=== PATIENT | female | born 1975 | race Caucasian/White ===

== ENCOUNTER 2020-03-17 07:28 | Day surgery (SDC) | payer BC ==
[~2020-03-17 07:28] MED LIST: Midazolam 1 MG/ML 2 ML SDV ONE; Propofol 200 MG/20 ML SDV ONE; fentaNYL 100 MCG/2 ML SDV ONE
[2020-03-17] MEDS ORDERED: Dextrose 5%-Lactated Ringers 1,000 ML IV SCH (08:00)
[2020-03-17] MEDS ORDERED: Naloxone 0.4 MG/ML SDV IVPUSH PRN (10:07)
[2020-03-17] MEDS ORDERED: diphenhydrAMINE 25 MG Cap PO PRN (10:07)
[2020-03-17] MEDS ORDERED: HYDROmorphone/Normal Saline 15 MG/30 ML PCA IV PRN (10:07)
[2020-03-17] MEDS ORDERED: diphenhydrAMINE 50 MG/ML SDV IVPUSH PRN (10:07)
[2020-03-17] MEDS ORDERED: Ondansetron 4 MG/2 ML SDV IVPUSH PRN (10:07)
--- NOTE | 2020-03-28 11:32 | OR ---
DATE OF PROCEDURE: 03/17/2020 SURGEON: Martin Page MD PREOPERATIVE DIAGNOSIS: Gastroesophageal reflux disease. POSTOPERATIVE DIAGNOSES: 1. Mild gastroesophageal reflux disease with a small hiatal hernia, but otherwise wide open esophagogastric junction. 2. Mild antral gastritis. OPERATIVE PROCEDURE: Esophagogastroduodenoscopy with: 1. Biopsies of esophagogastric junction for histologic evaluation. 2. Biopsies of antrum for CLOtest. ANESTHESIA: IV sedation. INDICATION FOR PROCEDURE: A 44-year-old presenting with some worsening gastroesophageal reflux symptoms. Presently, the patient is on Pepcid 20 mg b.i.d. Plan is to proceed with an upper GI endoscopy with biopsies as indicated. Potential risks including bleeding and perforation were discussed, and the patient wishes to proceed. DETAILS OF PROCEDURE: The patient was taken to the operating room and placed in a left lateral decubitus position. IV sedation was administered, after which the upper GI endoscope was passed orally through the length of the esophagus into the stomach with retroflexion view of the fundus, and thereafter, through the pyloric channel into the proximal duodenum. Findings included a very small hiatal hernia with some very mild-appearing gastroesophageal reflux disease with the mucosa distally within the esophagus being somewhat friable and edematous. There was a quite wide open esophagogastric junction indicating limited barrier function between the stomach and the esophagus being present. Otherwise, with patchy antral gastritis. The pyloric channel and proximal duodenum were unremarkable. At this point, biopsies were obtained from the esophagogastric junction and sent for histologic evaluation. Biopsies of antrum for CLOtest. Minimal bleeding from the biopsy sites was seen, and the procedure was then concluded. Given the patient's underlying complex medical issues, I think we will, at this point, avoid starting on proton pump inhibitors. She to have some intolerances to these in the past. We will go up to 40 mg b.i.d. with the Pepcid, and followup will be with Rosalina Velarde PA-C, at [facility], as needed. Martin Page MD /[id number]
== END 2020-03-17 11:15 | disposition home or self-care (01) ==
LOC: JP.SDS 07:28
PROVIDERS: ATTEND Surgery
DX: K31.89 Other diseases of stomach and duodenum (principal); K29.50 Unspecified chronic gastritis without bleeding; K21.9 Gastro-esophageal reflux disease without esophagitis; K44.9 Diaphragmatic hernia without obstruction or gangrene; N18.30 Chronic kidney disease, stage 3 unspecified; Z88.0 Allergy status to penicillin; Z88.2 Allergy status to sulfonamides
CPT/HCPCS: 43239; 87081; 88305; 88312; J2250; J2704; J3010; J7121

== ENCOUNTER 2022-04-12 06:59 | Inpatient (IN) | payer BC ==
[~2022-04-12 06:59] MED LIST changes: +Bupivacaine 0.5% 30 ML SDV ONE; +Lidocaine 1% with EPINEPHrine 1:100,000 50 ML MDV ONE; +Meropenem 500 MG SDV ONE; -Midazolam 1 MG/ML 2 ML SDV ONE; -Propofol 200 MG/20 ML SDV ONE; -fentaNYL 100 MCG/2 ML SDV ONE
[2022-04-12] MEDS ORDERED: fentaNYL 250 MCG/5 ML SDV ONE ×2 (07:02→10:21)
[2022-04-12] MEDS ORDERED: Dexamethasone 4 MG/ML SDV ONE (07:03)
[2022-04-12] MEDS ORDERED: Neostigmine Methylsulfate 1 MG/ML 5 ML Syringe ONE (07:03)
[2022-04-12] MEDS ORDERED: Succinylcholine 200 MG/10 ML MDV ONE (07:03)
[2022-04-12] MEDS ORDERED: Rocuronium 50 MG/5 ML Vial ONE (07:03)
[2022-04-12] MEDS ORDERED: Glycopyrrolate 0.2 MG/ML 5 ML MDV ONE (07:03)
[2022-04-12] MEDS ORDERED: Propofol 200 MG/20 ML SDV ONE (07:03)
[2022-04-12] MEDS ORDERED: Ondansetron 4 MG/2 ML SDV ONE (07:03)
[2022-04-12] MEDS ORDERED: Dextrose 5%-Lactated Ringers 1,000 ML IV SCH (07:15)
[2022-04-12] MEDS ORDERED: Acetaminophen 500 MG Tab PO ONE (07:30)
[2022-04-12 07:38] LABS: ESTIMATED GFR 57 mL/min (>60)
[2022-04-12] MEDS ORDERED: cefOXitin 2 GM in Sodium Chloride 0.9% 50 ML IV ONE (08:15)
[2022-04-12] MEDS ORDERED: Ropivacaine 35 ML, dexAMETHasone 8 MG, EPINEPHrine 0.4 MG, Sodium Chloride 0.9% 42.6 ML NERVRT SCH ×4 (08:30)
[2022-04-12] MEDS ORDERED: Lactated Ringers 1,000 ML ONE (10:41)
[2022-04-12] MEDS ORDERED: Labetalol 20 MG/4 ML Syringe ONE (10:42)
[2022-04-12] MEDS ORDERED: Naloxone 0.4 MG/ML SDV IVPUSH PRN (11:38)
[2022-04-12] MEDS ORDERED: Ondansetron 4 MG/2 ML SDV IVPUSH PRN (11:38)
[2022-04-12] MEDS ORDERED: diphenhydrAMINE 50 MG/ML SDV IVPUSH PRN (11:38)
[2022-04-12] MEDS ORDERED: diphenhydrAMINE 25 MG Cap PO PRN (11:38)
[2022-04-12] MEDS ORDERED: HYDROmorphone/Normal Saline 6 MG/30 ML PCA Vial IV PRN (11:38)
[2022-04-12] MEDS ORDERED: hydrOXYzine HCL 100 MG/2 ML SDV IM ONE (12:25)
[2022-04-12] MEDS ORDERED: hydrALAZINE 20 MG/ML SDV ONE (12:45)
[2022-04-12] MEDS ORDERED: hydrOXYzine HCL 100 MG/2 ML SDV IM PRN (13:18)
[2022-04-12] MEDS ORDERED: Fluticasone NASAL Spray 16 GM Bottle NASBOTH PRN (13:26)
[2022-04-12] MEDS ORDERED: Naloxone 0.4 MG/ML SDV IV PRN (14:00)
[2022-04-12] MEDS: cefOXitin 2 GM in Sodium Chloride 0.9% 50 ML IV SCH ×2 (14:37→19:18)
[2022-04-12] MEDS ORDERED: cefOXitin 2 GM in Sodium Chloride 0.9% 50 ML IV SCH (16:00)
[2022-04-12] MEDS: Ondansetron 4 MG/2 ML SDV IVPUSH PRN (17:12)
[2022-04-12] MEDS: Acetaminophen 325 MG Tab PO SCH ×2 (18:36→22:13)
[2022-04-12] MEDS: Ketorolac 30 MG/ML SDV IVPUSH PRN (19:17)
[2022-04-12] MEDS: Dextrose 5%-Lactated Ringers 1,000 ML IV SCH (20:31)
[2022-04-12] MEDS: Mycophenolate Mofetil 250 MG Cap PO SCH (21:17)
[2022-04-12] MEDS: Famotidine 20 MG Tab PO SCH (21:17)
[2022-04-12] MEDS: Cetirizine 10 MG Tab PO SCH (21:17)
[2022-04-13] MEDS: Acetaminophen 325 MG Tab PO SCH ×5 (00:07→23:53)
[2022-04-13] MEDS: cefOXitin 2 GM in Sodium Chloride 0.9% 50 ML IV SCH ×4 (02:19→20:06)
[2022-04-13] MEDS: Dextrose 5%-Lactated Ringers 1,000 ML IV SCH (03:42)
[2022-04-13 05:06] LABS: ESTIMATED GFR 57 mL/min (>60)
[2022-04-13] MEDS: Ondansetron 4 MG/2 ML SDV IVPUSH PRN (05:34)
[2022-04-13] MEDS ORDERED: Ondansetron 4 MG Tab.DIS PO PRN (07:24)
[2022-04-13] MEDS ORDERED: traMADol 50 MG Tab PO PRN (07:25)
[2022-04-13] MEDS ORDERED: hydrOXYzine HCl 25 MG Tab PO PRN (07:26)
[2022-04-13] MEDS ORDERED: Dextrose 5%-Lactated Ringers 1,000 ML IV SCH (07:30)
[2022-04-13] MEDS: Ketorolac 30 MG/ML SDV IVPUSH PRN (08:30)
[2022-04-13] MEDS: Bisacodyl 5 MG Tab PO SCH ×2 (08:30→20:07)
[2022-04-13] MEDS: Mycophenolate Mofetil 250 MG Cap PO SCH ×2 (08:30→20:07)
[2022-04-13] MEDS: Docusate Sodium 100 MG Cap PO SCH ×2 (08:30→20:07)
[2022-04-13] MEDS: Famotidine 20 MG Tab PO SCH ×2 (08:31→20:07)
[2022-04-13] MEDS: buPROPion 150 MG Tab.ER PO SCH (08:31)
[2022-04-13] MEDS ORDERED: Mycophenolate Mofetil 250 MG Cap PO SCH (09:00)
[2022-04-13] MEDS: Cetirizine 10 MG Tab PO SCH (20:07)
[2022-04-14] MEDS: Acetaminophen 325 MG Tab PO SCH ×3 (05:23→17:45)
[2022-04-14] MEDS: Bisacodyl 5 MG Tab PO SCH ×2 (08:04→20:21)
[2022-04-14] MEDS: Docusate Sodium 100 MG Cap PO SCH ×2 (08:04→20:21)
[2022-04-14] MEDS: Famotidine 20 MG Tab PO SCH ×2 (08:04→20:21)
[2022-04-14] MEDS: Mycophenolate Mofetil 250 MG Cap PO SCH ×2 (08:04→20:21)
[2022-04-14] MEDS: buPROPion 150 MG Tab.ER PO SCH (08:05)
[2022-04-14] MEDS: Magnesium Oxide 400 MG Tab PO SCH ×2 (09:33→20:21)
[2022-04-14] MEDS: Polyethylene Glycol 3350 Powder 17 GM Packet PO PRN (11:28)
[2022-04-14] MEDS: Cetirizine 10 MG Tab PO SCH (20:22)
[2022-04-15] MEDS: Acetaminophen 325 MG Tab PO SCH ×2 (02:04→08:17)
[2022-04-15 05:06] LABS: ESTIMATED GFR 71 mL/min (>60)
[2022-04-15] MEDS: Polyethylene Glycol 3350 Powder 17 GM Packet PO PRN (07:20)
[2022-04-15] MEDS: Mycophenolate Mofetil 250 MG Cap PO SCH (08:16)
[2022-04-15] MEDS: Docusate Sodium 100 MG Cap PO SCH (08:17)
[2022-04-15] MEDS: Bisacodyl 5 MG Tab PO SCH (08:17)
[2022-04-15] MEDS: Magnesium Oxide 400 MG Tab PO SCH (08:17)
[2022-04-15] MEDS: buPROPion 150 MG Tab.ER PO SCH (08:18)
[2022-04-15] MEDS: Famotidine 20 MG Tab PO SCH (08:18)
== END 2022-04-15 09:54 | disposition home or self-care (01) | DRG 519 ==
LOC: JP.SDSSCHI 06:59 → JP.MS 11:45
PROVIDERS: ADMIT Surgery; ATTEND Surgery
PROC: 0UT90ZZ Resection of Uterus, Open Approach (ICD-10-PCS; principal; 2022-04-12)
PROC: 0DBW0ZZ Excision of Peritoneum, Open Approach (ICD-10-PCS; 2022-04-12)
PROC: 3E0M05Z Introduction of Adhesion Barrier into Peritoneal Cavity, Open Approach (ICD-10-PCS; 2022-04-12)
DX: D25.1 Intramural leiomyoma of uterus (principal); K66.8 Other specified disorders of peritoneum; Z88.0 Allergy status to penicillin; Z88.2 Allergy status to sulfonamides; F32.A Depression, unspecified; G43.909 Migraine, unspecified, not intractable, without status migrainosus; M32.14 Glomerular disease in systemic lupus erythematosus; Z98.890 Other specified postprocedural states
CPT/HCPCS: 36415; 80048; 80053; 83735; 84100; 85025; 85027; 86850; 86900; 86901; 86920; 86922; A9270-GY; J0171; J0330; J0360; J0694; J1100; J1170; J1885; J2020; J2185; J2405; J2704; J2710; J2795; J3010; J3410; J3490; J7120; J7121

== ENCOUNTER 2023-10-11 01:23 | Emergency (ER) | payer BC ==
[2023-10-11 02:09] LABS: BASOPHILS PERCENT AUTO 0.5 % (0.1-1.3); EOSINOPHILS PERCENT AUTO 0.5 % (0.0-5.4); HEMATOCRIT 36.4 % (34.3-46.0); HEMOGLOBIN 12.6 g/dL (11.2-15.5); IMMATURE GRAN PERCENT AUTO 0.5 % (0.0-0.7); LYMPHOCYTES ABSOLUTE AUTO 0.96 K/uL (0.8-3.3); LYMPHOCYTES PERCENT AUTO 22.4 % (11.4-47.7); MEAN CORPUSCULAR HEMOGLOBIN 30.1 pg (31.6-35.5); MEAN CORPUSCULAR HGB CONC 34.6 g/dL (31.6-35.5); MEAN CORPUSCULAR VOLUME 87.1 fL (81.4-99.0); MONOCYTES ABSOLUTE AUTO 0.59 K/uL (0.20-0.90); MONOCYTES PERCENT AUTO 13.8 % (3.3-12.6); NEUTROPHILS ABSOLUTE AUTO 2.68 K/uL (1.0-7.6); NEUTROPHILS PERCENT AUTO 62.3 % (40.0-78.1); PLATELET COUNT,PLT 194 K/uL (130-375); RED BLOOD CELL COUNT 4.18 M/uL (3.77-5.24); WHITE BLOOD CELL COUNT,WBC 4.3 K/uL (3.2-11.0)
[2023-10-11] MEDS: Sodium Chloride 0.9% 1,000 ML IV SCH (02:10)
[2023-10-11] MEDS: Sodium Chloride 0.9% 10 ML Syringe FLUSH PRN (02:11)
[2023-10-11] MEDS: Prochlorperazine 10 MG/2 ML SDV IVPUSH ONE (02:11)
[2023-10-11] MEDS: diphenhydrAMINE 50 MG/ML SDV IVPUSH ONE (02:11)
[2023-10-11] MEDS: Ketorolac 30 MG/ML SDV IVPUSH ONE (02:11)
[2023-10-11 02:18] LABS: BASOPHILS ABSOLUTE AUTO 0.02 K/uL (0.00-0.10); EOSINOPHILS ABSOLUTE AUTO 0.02 K/uL (0.00-0.40); IMMATURE GRAN ABSOLUTE AUTO 0.02 K/uL (0.00-0.23)
[2023-10-11 02:24] LABS: ANION GAP 12.9 mmol/L (5.0-14.0); BLOOD UREA NITROGEN,BUN 16 mg/dL (7-18); CARBON DIOXIDE,CO2 27 mmol/L (21-32); CHLORIDE,CL 102 mmol/L (100-108); ESTIMATED GFR 70 mL/min (>60); GLUCOSE RANDOM 106 mg/dL (74-106); POTASSIUM,K 5.9 mmol/L (3.6-5.2); SODIUM,NA 136 mmol/L (140-148)
== END 2023-10-11 03:24 | disposition home or self-care (01) ==
LOC: JP.ED 01:23
DX: R51.9 Headache, unspecified (principal); N18.9 Chronic kidney disease, unspecified; Z86.16 Personal history of COVID-19; Z90.710 Acquired absence of both cervix and uterus; Z79.899 Other long term (current) drug therapy; Z88.0 Allergy status to penicillin; Z88.2 Allergy status to sulfonamides
CPT/HCPCS: 36415; 80048; 83605; 85025; 96361; 96374; 96375; 99284-25; J0780; J1200; J1885; J3490; J7030

== ENCOUNTER 2024-06-04 18:19 | Emergency (ER) | payer BC | END 2024-06-04 20:16 | disposition home or self-care (01) | LOC: JP.ED 18:19 | DX: M79.89 Other specified soft tissue disorders (principal); Z90.710 Acquired absence of both cervix and uterus; Z88.0 Allergy status to penicillin; Z88.2 Allergy status to sulfonamides; Z79.899 Other long term (current) drug therapy | CPT/HCPCS: 93971-RT; 99283 ==

== ENCOUNTER 2024-06-24 07:01 | Day surgery (SDC) | payer BC ==
[2024-06-24] MEDS ORDERED: fentaNYL 100 MCG/2 ML SDV ONE (07:17)
[2024-06-24] MEDS ORDERED: Propofol 200 MG/20 ML SDV ONE (07:17)
[2024-06-24] MEDS ORDERED: Midazolam 1 MG/ML 2 ML SDV ONE (07:17)
[2024-06-24] MEDS: Lactated Ringers 1,000 ML IV SCH (07:59)
== END 2024-06-24 10:10 | disposition home or self-care (01) ==
LOC: JP.SDS 07:01
PROVIDERS: ATTEND Surgery
DX: K64.4 Residual hemorrhoidal skin tags (principal); K21.9 Gastro-esophageal reflux disease without esophagitis; N18.9 Chronic kidney disease, unspecified; Z88.0 Allergy status to penicillin; Z88.2 Allergy status to sulfonamides
CPT/HCPCS: 00811; 45378; J2250; J2704; J3010; J7120